=== PATIENT | female | born 1995 | race Two or more races ===

== ENCOUNTER 2018-06-01 06:46 | Emergency (ER) | payer SELFPAY ==
[2018-06-01 06:58] VITALS: BMI 21.1
[2018-06-01 07:02] VITALS: BP 129/71; PULSE 90; RESP 18; TEMP 98.6; O2SAT 98
--- NOTE | 2018-06-01 07:50 | ED PDOC ---
HPI: Psych/Substance Abuse Time Seen by Provider: 06/01/18 07:13 Chief Complaint (Nursing): Alcohol Ingestion Chief Complaint (Provider): Alcohol Intoxication History/Exam Limitations: intoxication Onset/Duration Of Symptoms: Hrs Current Symptoms Are (Timing): Still Present Suicide/Self Injury Attempted (Context): None Modifying Factor(s): Alcohol Associated Symptoms: denies: Suicidal Thoughts, Suicidal Plan Involuntary Hold By: Local Law Enforcement Additional Complaint(s): 22 year old female with past medical history of seizures arrives to the emergency department under police custody. As per police officers the patient was found knocking on the wrong door of an apartment and speaking belligerently. The officers reports that she then became uncooperative and placed under arrest. In the ED patient remains uncooperative but admits to drinking alcohol. Denies suicidal ideation. Of note: Patient takes lamictal daily for seizures PMD: Past Medical History Reviewed: Historical Data, Nursing Documentation, Vital Signs Vital Signs: Last Vital Signs Temp 98.6 F 06/01/18 06:58 Pulse 90 06/01/18 06:58 Resp 18 06/01/18 06:58 BP 129/71 06/01/18 06:58 Pulse Ox 98 06/01/18 06:58 - Medical History PMH: Seizures - Surgical History Surgical History: No Surg Hx - Family History Family History: States: Unknown Family Hx - Allergies Allergies/Adverse Reactions: Allergies Allergy/AdvReac Type Severity Reaction Status Date / Time No Known Allergies Allergy Verified 06/01/18 06:57 Review of Systems Review Of Systems: ROS cannot be obtained secondary to pt's inabilty to answer questions. (unable to obtain due to patients intoxicated state) Physical Exam - Reviewed Nursing Documentation Reviewed: Yes Vital Signs Reviewed: Yes - Physical Exam Appears: Positive for: Non-toxic, No Acute Distress Head Exam: Positive for: ATRAUMATIC, NORMAL INSPECTION (clear pressured speech no signs of gross trauma ), NORMOCEPHALIC Skin: Positive for: Normal Color, Warm, Dry. Negative for: Rash Eye Exam: Positive for: EOMI (pupils 4mm in surge ), PERRL. Negative for: Nystagmus ENT: Positive for: Normal ENT Inspection. Negative for: Nasal Congestion, Tonsillar Exudate, Tonsillar Swelling Neck: Positive for: Normal, Painless ROM, Supple Cardiovascular/Chest: Positive for: Regular Rate, Rhythm, Chest Non Tender. Negative for: Gallop, Bradycardia, Tachycardia Respiratory: Positive for: Normal Breath Sounds. Negative for: Rales, Rhonchi, Wheezing, Respiratory Distress Gastrointestinal/Abdominal: Positive for: Normal Exam, Bowel Sounds, Soft. Negative for: Tenderness, Mass, Guarding, Rebound Back: Positive for: Normal Inspection. Negative for: L CVA Tenderness, R CVA Tenderness, Vertebral Tenderness Extremity: Positive for: Normal ROM. Negative for: Tenderness, Calf Tenderness , Deformity, Swelling Neurologic/Psych: Positive for: Alert (AAO x3), Oriented, Gait, Other (neuro intact with poor insight and agitation). Negative for: Motor/Sensory Deficits - Laboratory Results Result Diagrams: 06/01/18 09:05 06/01/18 09:05 - ECG O2 Sat by Pulse Oximetry: 98 (RA) Pulse Ox Interpretation: Normal Medical Decision Making Medical Decision Makin Initial Impression 22 year old female presenting with alcool intoxication Initial Plan: * Crisis evaluation * Accucheck * Reevaluation Crisis eval order, will observe for sobriety along with accucheck. Initial Accucheck: [phone] Patient seen and cleared by crisis. Father came to the ER and accompany home for safety. Given out patient referral for rehab. DEANA ADAMS, thank you for letting us take care of you today. Your provider was Live Chaap III, DO and you were treated for MEDICAL CLEARANCE. The emergency medical care you received today was directed at your acute symptoms. If you were prescribed any medication, please fill it and take as directed. It may take several days for your symptoms to resolve. Return to the Emergency Department if your symptoms worsen, do not improve, or if you have any other problems. Please contact your doctor or call one of the physicians/clinics you have been referred to that are listed on the Patient Visit Information form that is included in your discharge packet. Bring any paperwork you were given at discharge with you along with any medications you are taking to your follow up visit. Our treatment cannot replace ongoing medical care by a primary care provider outside of the emergency department. Thank you for allowing the [facility] team to be part of your care today. -- Documented by Rebekah Francisco acting as a scribe for Live Chapa III, DO. All medical record entries made by the Scribe were at my direction and personally dictated by me. I have reviewed the chart and agree that the record accurately reflects my personal performance of the history, physical exam, medical decision making, and the department course for this patient. I have also personally directed, reviewed, and agree with the discharge instructions and disposition. Disposition - Clinical Impression Clinical Impression: Alcohol abuse with alcohol-induced disorder - Disposition Referrals: Alcoholics Anonymous [Outside] Condition: STABLE Instructions: Alcohol Abuse and Alcoholism (DC), Effects of Alcohol on Your Health Forms: [facility] ([place])
[2018-06-01 09:44] LABS: BASO # 0.1 K/uL (0.0-0.2); BASO % 0.8 % (0.0-2.0); EOS # 0.1 K/uL (0.0-0.7); HEMOGLOBIN 13.5 g/dL (12.0-16.0); LYMPH % 33.6 % (20.0-40.0); MEAN CELL VOLUME 91.5 fl (81.0-99.0); MEAN CORPUSCULAR HEMOGLOBIN 30.7 pg (27.0-31.0); MEAN CORPUSCULAR HGB CONC 33.6 g/dL (33.0-37.0); MEAN PLATELET VOLUME 7.8 fl (7.2-11.7); MONO % 8.1 % (0.0-10.0); NEUT # 6.7 K/uL (1.8-7.0); NEUT % 56.5 % (50.0-75.0); NRBC % 0.1 % (0.0-0.0); RBC 4.38 Mil/uL (3.80-5.20); WHITE BLOOD COUNT 11.9 K/uL (4.8-10.8)
[2018-06-01 09:49] LABS: ALB/GLOB RATIO 1.4 (1.0-2.1); ALBUMIN 4.6 g/dL (3.5-5.0); ALT/SGPT 31 U/L (9-52); AST/SGOT 33 U/L (14-36); BLOOD UREA NITROGEN 11 mg/dl (7-17); CALCIUM 8.6 mg/dL (8.4-10.2); GFR AFRICAN-AMERICAN > 60; GFR NON-AFRICAN AMERICAN > 60
== END 2018-06-01 11:51 | disposition home or self-care (01) ==
LOC: H.ER 06:46
DX: F10.99 Alcohol use, unspecified with unspecified alcohol-induced disorder (principal); Y90.6 Blood alcohol level of 120-199 mg/100 ml
CPT/HCPCS: 80053; 82948; 85025; 99284; G0480